=== PATIENT | male | born 1980 | race African-American/Black ===

== ENCOUNTER 2016-07-02 13:57 | Emergency (ER) | payer MEDICAID ==
[~2016-07-02] VITALS: Ht 180.3 cm; Wt 78.0 kg
[~2016-07-02 13:57] MED LIST: FOLI-43 PO; HYDR-519 PO; LANTUSUD SUBCUT
[2016-07-02] MEDS ORDERED: ONDANSETRON HCL 4MG/2ML VIAL IV ONE (15:30)
[2016-07-02] MEDS ORDERED: MORPHINE SULFATE 4 MG/ML CPJ (NOT FOR IM USE) IV ONE ×2 (15:30→18:00)
[2016-07-02] MEDS ORDERED: KETOROLAC 30MG/ML VIAL IV ONE (15:30)
[2016-07-02 15:55] LABS: DIFFERENTIAL COMMENT 1; HEMATOCRIT. 34.3 % (42.0-52.0); HEMOGLOBIN. 11.1 g/dL (14.0-18.0); MEAN CORPUSCULAR HEMOGLOBIN 25.4 pg (28.0-32.0); MEAN CORPUSCULAR HGB CONC 32.5 g/dL (31.0-37.0); MEAN CORPUSCULAR VOLUME 78.2 fL (80.0-94.0); MEAN PLATELET VOLUME 7.8 fl (7.4-10.4); PLATELET 332 x1000/uL (130-400); RED BLOOD CELL COUNT 4.38 mill/uL (4.7-6.1); RED CELL DISTRIBUTION WIDTH 24.3 % (11.6-14.6); WHITE BLOOD COUNT 5.5 x1000/uL (4.5-11.0)
[2016-07-02 15:56] LABS: ADD RBC MORPHOLOGY YES
[2016-07-02 16:33] LABS: ATYPICAL LYMPHOCYTES 5; NUCLEATED RED BLOOD CELLS 4 /100 WBC; PLATELET ESTIMATE NORMAL
[2016-07-02 16:34] LABS: ANISOCYTOSIS 3+; HYPOCHROMASIA 1+; TARGET CELLS 1+
[2016-07-02] MEDS: DIPHENHYDRAMINE 50MG/ML VIAL IV ONE ×2 (17:04→17:37)
[2016-07-02] MEDS ORDERED: INSULIN REGULAR (HUMULIN R) 300UNITS/3ML IV ONE (18:00)
[2016-07-02] MEDS ORDERED: SODIUM CHLORIDE 0.9% 1,000 ML IV ONE (18:00)
[2016-07-02] MEDS ORDERED: HYDROCODONE/ACETAMINOPHEN 5/325MG TABLET PO ONE (19:45)
[2016-07-02 19:55] VITALS: BP 122/76
== END 2016-07-02 20:39 | disposition home or self-care (01) ==
LOC: ER 14:50
DX: D57.00 Hb-SS disease with crisis, unspecified (principal); E10.65 Type 1 diabetes mellitus with hyperglycemia; R23.1 Pallor; Z79.4 Long term (current) use of insulin
CPT/HCPCS: 36415; 82962; 85025; 85044; 96361; 96374; 96375; 96376; 99284; J1200; J1815; J2270; J2405; J7030; Z7610

== ENCOUNTER 2017-01-29 17:08 | Inpatient (IN) | payer MEDICAID ==
[~2017-01-29] VITALS: Ht 185.4 cm; Wt 77.1 kg
[2017-01-29 19:17] LABS: INR 1.1
[2017-01-29 19:19] LABS: HEMATOCRIT. 27.6 % (42.0-52.0); HEMOGLOBIN. 8.8 g/dL (14.0-18.0); MEAN CORPUSCULAR HEMOGLOBIN 22.3 pg (28.0-32.0); MEAN CORPUSCULAR VOLUME 69.7 fL (80.0-94.0); MEAN PLATELET VOLUME 8.9 fl (7.4-10.4); PLATELET 670 x1000/uL (130-400); RED BLOOD CELL COUNT 3.96 mill/uL (4.7-6.1); RED CELL DISTRIBUTION WIDTH 28.6 % (11.6-14.6)
[2017-01-29 19:28] LABS: BETA HYDROXYBUTYRATE 0.4 mMol/L (0.0-0.3); CARBON DIOXIDE 26 mEq/L (21-32); CHLORIDE 97 mEq/L (98-107); CREATINE KINASE 244 IU/L (39-308); ETHANOL BLOOD < 10 mg/dL
[2017-01-29 19:29] LABS: TROPONIN I < 0.02 ng/mL (0.00-0.04)
[2017-01-29 19:40] LABS: CLARITY URINE CLEAR (CLEAR); COLOR URINE YELLOW (YELLOW); GLUCOSE URINE 3+ (NEGATIVE); KETONES URINE NEGATIVE (NEGATIVE); LEUKOCYTE ESTERASE URINE NEGATIVE (NEGATIVE); NITRITE URINE NEGATIVE (NEGATIVE); OCCULT BLOOD URINE NEGATIVE (NEGATIVE); PROTEIN URINE NEGATIVE (NEGATIVE); SPECIFIC GRAVITY URINE 1.024 (1.005-1.030); UROBILINOGEN URINE 0.2 E.U./dL (0.2-1.0)
[2017-01-29 20:01] LABS: NUCLEATED RED BLOOD CELLS 74 /100 WBC
[2017-01-29 20:02] LABS: PLATELET ESTIMATE INCREASED
[2017-01-29 20:04] LABS: *AMPHETAMINES SCREEN URINE NEGATIVE (NEGATIVE); *BARBITURATES SCREEN URINE NEGATIVE (NEGATIVE); *BENZODIAZEPINES SCREEN URINE NEGATIVE (NEGATIVE); *COCAINE SCREEN URINE NEGATIVE (NEGATIVE); CANNABINOID URINE SCREEN NEGATIVE (NEGATIVE); METHADONE URINE SCREEN NEGATIVE (NEGATIVE); OPIATES URINE SCREEN NEGATIVE (NEGATIVE); PHENCYCLIDINE URINE SCREEN NEGATIVE (NEGATIVE)
[2017-01-29] MEDS ORDERED: KETOROLAC 30MG/ML VIAL IV ONE (20:15)
[2017-01-29] MEDS ORDERED: MORPHINE SULFATE 4 MG/ML CPJ (NOT FOR IM USE) IV ONE (20:15)
[2017-01-29] MEDS ORDERED: DIPHENHYDRAMINE 50MG/ML VIAL IV ONE (20:15)
[2017-01-29] MEDS ORDERED: ONDANSETRON HCL 4MG/2ML VIAL IV ONE (21:00)
[2017-01-29] MEDS ORDERED: SODIUM CHLORIDE 0.9% 1,000 ML IV ONE (21:30)
[2017-01-29] MEDS ORDERED: MORPHINE SULFATE 10 MG/ML CPJ IV NR (21:45)
[2017-01-29] MEDS ORDERED: INSULIN REGULAR (HUMULIN R) 300UNITS/3ML SUBCUT ONE (22:15)
[2017-01-30] MEDS ORDERED: MORPHINE SULFATE 4 MG/ML CPJ (NOT FOR IM USE) IV ONE (00:15)
[2017-01-30] MEDS ORDERED: ONDANSETRON HCL 4MG/2ML VIAL IV ONE (00:15)
[2017-01-30] MEDS ORDERED: MORPHINE SULFATE 10 MG/ML CPJ IV ONE (00:30)
[2017-01-30] MEDS ORDERED: HYDROCODONE/ACETAMINOPHEN 5/325MG TABLET PO PRN (03:15)
[2017-01-30] MEDS ORDERED: SODIUM CHLORIDE 0.9% 1,000 ML IV SCH (03:15)
[2017-01-30] MEDS ORDERED: DEXTROSE 50% WATER 50ML SYRINGE IV PRN (03:15)
[2017-01-30 03:43] VITALS: BP 116/69
[2017-01-30 04:00] VITALS: BP 105/55
[2017-01-30] MEDS ORDERED: INSULIN DETEMIR UD 100 UNITS/ML SYR SUBCUT NR (04:30)
[2017-01-30] MEDS: MORPHINE SULFATE 10 MG/ML CPJ IV PRN ×3 (05:03→12:11)
[2017-01-30] MEDS: BLOOD SUGAR DIAGNOSTIC STRIP TEST SCH ×2 (06:36→12:14)
[2017-01-30] MEDS ORDERED: INSULIN LISPRO 100 UNITS/ML SUBCUT SCH (06:45)
[2017-01-30] MEDS ORDERED: SODIUM CHLORIDE 0.45% 1,000 ML IV SCH (06:45)
[2017-01-30] MEDS: INSULIN LISPRO 100 UNITS/ML SUBCUT SCH ×2 (06:50→12:18)
[2017-01-30] MEDS ORDERED: OMEPRAZOLE 20MG CAPSULE EXTENDED RELEASE PO SCH (07:20)
[2017-01-30 08:00] VITALS: BP 107/63
[2017-01-30 08:15] LABS: CARBON DIOXIDE 28 mEq/L (21-32); CHLORIDE 99 mEq/L (98-107)
[2017-01-30 08:24] LABS: HEMATOCRIT. 25.2 % (42.0-52.0); HEMOGLOBIN. 7.7 g/dL (14.0-18.0); MEAN CORPUSCULAR HEMOGLOBIN 21.6 pg (28.0-32.0); MEAN CORPUSCULAR VOLUME 70.2 fL (80.0-94.0); MEAN PLATELET VOLUME 9.1 fl (7.4-10.4); PLATELET 709 x1000/uL (130-400); RED BLOOD CELL COUNT 3.59 mill/uL (4.7-6.1); RED CELL DISTRIBUTION WIDTH 27.7 % (11.6-14.6)
[2017-01-30] MEDS ORDERED: INFLUENZA VIRUS VACCINE 0.5ML SYR IM ONE (10:00)
[2017-01-30 12:00] VITALS: BP 104/70
[2017-01-30] MEDS ORDERED: INSULIN DETEMIR UD 100 UNITS/ML SYR SUBCUT SCH ×2 (13:00→22:00)
[2017-01-30 13:23] VITALS: BP 104/70
[2017-01-30 16:48] LABS: NUCLEATED RED BLOOD CELLS 43 /100 WBC
[2017-01-30 16:49] LABS: PLATELET ESTIMATE MARKEDLY INCREASED
== END 2017-01-30 13:45 | disposition home or self-care (01) | DRG 663 ==
LOC: ER 17:15 → 6EST 21:43 → ENRESERV 23:25
PROVIDERS: ADMIT Family Medicine Adult Medicine; ATTEND Family Medicine Adult Medicine
DX: D50.8 Other iron deficiency anemias (principal); R65.10 Systemic inflammatory response syndrome (SIRS) of non-infectious origin without acute organ dysfunction; E87.1 Hypo-osmolality and hyponatremia; E11.65 Type 2 diabetes mellitus with hyperglycemia; R71.0 Precipitous drop in hematocrit; D57.1 Sickle-cell disease without crisis; I10 Essential (primary) hypertension; D72.829 Elevated white blood cell count, unspecified; F17.200 Nicotine dependence, unspecified, uncomplicated; Z76.5 Malingerer [conscious simulation]; Z91.19 Patient's noncompliance with other medical treatment and regimen; Z88.8 Allergy status to other drugs, medicaments and biological substances
CPT/HCPCS: 36415; 71010; 80048; 80053; 80305; 81001; 82010; 82550; 82962; 83605; 83690; 84484; 85025; 85044; 85610; 86850; 86900; 86920; 90686; 93005; 96361; 96372; 96374; 96375; 96376; 99285; G0482; J1200; J1815; J1885; J2270; J2405; J7030

== ENCOUNTER 2017-07-22 14:48 | Emergency (ER) | payer MEDICAID, OTHER ==
[~2017-07-22] VITALS: Ht 177.8 cm; Wt 90.0 kg
[~2017-07-22 14:48] MED LIST changes: +INSU100I7 SQ
[2017-07-22] MEDS ORDERED: SODIUM CHLORIDE 0.9% 1,000 ML IV ONE ×2 (15:28→18:00)
[2017-07-22 17:54] LABS: HEMOGLOBIN. 10.5 g/dL (14.0-18.0); MEAN CORPUSCULAR VOLUME 70.2 fL (80.0-94.0); MEAN PLATELET VOLUME 7.9 fl (7.4-10.4); PLATELET 680 x1000/uL (130-400); RED BLOOD CELL COUNT 4.56 mill/uL (4.7-6.1); RED CELL DISTRIBUTION WIDTH 27.3 % (11.6-14.6)
[2017-07-22 17:55] LABS: CHLORIDE 98 mEq/L (98-107)
[2017-07-22 17:58] LABS: PROTHROMBIN TIME 10.6 sec (9.4-11.6)
[2017-07-22] MEDS ORDERED: MORPHINE SULFATE 2 MG/ML CPJ (NOT FOR IM USE) IV ONE (18:00)
[2017-07-22 18:01] LABS: BETA HYDROXYBUTYRATE 0.1 mMol/L (0.0-0.3)
[2017-07-22] MEDS ORDERED: MORPHINE SULFATE 4 MG/ML CPJ (NOT FOR IM USE) IV ONE (18:15)
[2017-07-22 18:32] LABS: ATYPICAL LYMPHOCYTES 2; NUCLEATED RED BLOOD CELLS 8 /100 WBC
[2017-07-22 18:33] LABS: PLATELET ESTIMATE MARKEDLY INCREASED
[2017-07-22] MEDS ORDERED: INSULIN REGULAR (HUMULIN R) 300UNITS/3ML IV ONE ×2 (18:45→19:30)
[2017-07-22] MEDS ORDERED: IBUPROFEN 600MG TABLET PO ONE (19:30)
[2017-07-22 19:50] VITALS: BP 137/67
== END 2017-07-22 19:55 | disposition home or self-care (01) ==
LOC: ER 14:59
DX: E11.65 Type 2 diabetes mellitus with hyperglycemia (principal); D57.00 Hb-SS disease with crisis, unspecified; I10 Essential (primary) hypertension; J45.909 Unspecified asthma, uncomplicated; F12.10 Cannabis abuse, uncomplicated; Z79.4 Long term (current) use of insulin
CPT/HCPCS: 36415; 80053; 82010; 82962; 85025; 85044; 85610; 96361; 96374; 96375; 96376; 99285; J1815; J2270; J7030; Z7610